=== PATIENT | female | born 1950 | race Caucasian/White ===

== ENCOUNTER → 2019-02-26 17:24 | Outpatient (CLI) | payer OTHER, SELFPAY ==
--- NOTE | 2019-02-26 17:30 | CT_ITS ---
STUDY: CTA OF THE BRAIN REASON FOR EXAM: Female, 68 years old. Single episode of the right leg numbness and tingling. History of the aneurysmal clips. RADIATION DOSAGE (If Supplied By Facility): CTDIvol = ( 27.89 ) mGy, DLP = ( 1373.91 ) mGycm TECHNIQUE: CT angiography was performed with a multi-detector CT scanner. Data acquisition was obtained from the skull base through the vertex following intravenous administration of 100cc IV Isovue 370. MIP images were reconstructed from the axial data set. Post-processing of the angiographic images was performed, with multiplanar reformation and 3D reconstruction. Individualized dose optimization techniques were used for this CT. COMPARISON: None. FINDINGS: Normal bilateral petrous carotid arteries. There is calcified plaque formation of the right cavernous carotid artery, without a cross-sectional luminal stenosis. There is calcified plaque formation of the left cavernous carotid artery, without a cross-sectional luminal stenosis. Normal right A1 segments of the anterior cerebral artery. Normal left A1 segments of the anterior cerebral artery. Normal intact anterior communicating artery (ACOM). Normal bilateral A2 segments of the anterior cerebral arteries. Normal right M1 and M2 segments of the middle cerebral arteries, with a normal M1 bifurcation. Normal left M1 and M2 segments of the middle cerebral arteries, with a normal M1 bifurcation. There is a persistent origin of the right posterior cerebral artery with absence of the posterior communicating artery (PCOM). Normal left posterior communicating artery (PCOM). Normal bilateral vertebral arteries. Normal basilar artery with a normal basilar bifurcation. The visualized bilateral superior cerebellar (SCA) arteries are normal. Normal bilateral P1, P2 and visualized P3 segments of the posterior cerebral arteries. There is no demonstrated aneurysm of the [place] of [place]an. Aneurysmal clip is seen in the region of the left posterior fossa in the region of the left posterior inferior cerebellar artery. The patient is status post left posterior occipital craniotomy and mesh placement. IMPRESSION: Normal [place] of [place] without a demonstrated aneurysm or hemodynamically significant stenosis. Electronically Signed: Wang No, at 9:08 EDT , Service support , STUDY: CTA NECK WITH CONTRAST REASON FOR EXAM: Female, 68 years old. Single episode of right leg numbness and tingling. RADIATION DOSAGE (If Supplied By Facility): CTDIvol = ( 27.89 ) mGy, DLP = ( 1373.91 ) mGycm TECHNIQUE: CT angiography with multi-detector data acquisition was performed from the aortic arch to the skull base following intravenous administration of 100cc IV Isovue 370. MIP images were reconstructed from the axial data set. Post-processing of the angiographic images was performed, with multiplanar reformation and 3D reconstruction. Individualized dose optimization techniques were used for this CT. COMPARISON: None. FINDINGS: AORTIC ARCH: There is atherosclerotic calcific plaque formation of the aortic arch and great vessels arising from the aortic arch, without a hemodynamically significant stenosis. There is a bovine origin of the great vessels with a common origin of the brachiocephalic and left common carotid artery. Normal origin of the left subclavian artery. RIGHT CAROTID ARTERIES: Normal right common carotid artery (CCA). Normal right common carotid bulb. Normal origin of the right internal carotid (ICA) artery without a hemodynamically significant stenosis. Normal visualized cervical portion of the right internal carotid artery. Normal origin of the right external carotid artery (ECA). LEFT CAROTID ARTERIES: Normal left common carotid artery (CCA). Normal left common carotid bulb. Normal origin of the left internal carotid (ICA) artery without a hemodynamically significant stenosis. Normal visualized cervical portion of the left internal carotid artery. Normal origin of the left external carotid artery (ECA). VERTEBRAL ARTERIES: Normal bilateral vertebral arteries. CT/CTA Head W/WO Contrast IMPRESSION: Normal bilateral cervical carotid and vertebral arteries. Electronically Signed: Wang No, at 9:10 EDT , Service support ,
--- NOTE | 2019-02-26 17:37 | CT_ITS ---
STUDY: CTA OF THE BRAIN REASON FOR EXAM: Female, 68 years old. Single episode of the right leg numbness and tingling. History of the aneurysmal clips. RADIATION DOSAGE (If Supplied By Facility): CTDIvol = ( 27.89 ) mGy, DLP = ( 1373.91 ) mGycm TECHNIQUE: CT angiography was performed with a multi-detector CT scanner. Data acquisition was obtained from the skull base through the vertex following intravenous administration of 100cc IV Isovue 370. MIP images were reconstructed from the axial data set. Post-processing of the angiographic images was performed, with multiplanar reformation and 3D reconstruction. Individualized dose optimization techniques were used for this CT. COMPARISON: None. FINDINGS: Normal bilateral petrous carotid arteries. There is calcified plaque formation of the right cavernous carotid artery, without a cross-sectional luminal stenosis. There is calcified plaque formation of the left cavernous carotid artery, without a cross-sectional luminal stenosis. Normal right A1 segments of the anterior cerebral artery. Normal left A1 segments of the anterior cerebral artery. Normal intact anterior communicating artery (ACOM). Normal bilateral A2 segments of the anterior cerebral arteries. Normal right M1 and M2 segments of the middle cerebral arteries, with a normal M1 bifurcation. Normal left M1 and M2 segments of the middle cerebral arteries, with a normal M1 bifurcation. There is a persistent origin of the right posterior cerebral artery with absence of the posterior communicating artery (PCOM). Normal left posterior communicating artery (PCOM). Normal bilateral vertebral arteries. Normal basilar artery with a normal basilar bifurcation. The visualized bilateral superior cerebellar (SCA) arteries are normal. Normal bilateral P1, P2 and visualized P3 segments of the posterior cerebral arteries. There is no demonstrated aneurysm of the [place] of Tran. Aneurysmal clip is seen in the region of the left posterior fossa in the region of the left posterior inferior cerebellar artery. The patient is status post left posterior occipital craniotomy and mesh placement. IMPRESSION: Normal [place] of [place]an without a demonstrated aneurysm or hemodynamically significant stenosis. Electronically Signed: Wang No, at 9:08 EDT , Service support , STUDY: CTA NECK WITH CONTRAST REASON FOR EXAM: Female, 68 years old. Single episode of right leg numbness and tingling. RADIATION DOSAGE (If Supplied By Facility): CTDIvol = ( 27.89 ) mGy, DLP = ( 1373.91 ) mGycm TECHNIQUE: CT angiography with multi-detector data acquisition was performed from the aortic arch to the skull base following intravenous administration of 100cc IV Isovue 370. MIP images were reconstructed from the axial data set. Post-processing of the angiographic images was performed, with multiplanar reformation and 3D reconstruction. Individualized dose optimization techniques were used for this CT. COMPARISON: None. FINDINGS: AORTIC ARCH: There is atherosclerotic calcific plaque formation of the aortic arch and great vessels arising from the aortic arch, without a hemodynamically significant stenosis. There is a bovine origin of the great vessels with a common origin of the brachiocephalic and left common carotid artery. Normal origin of the left subclavian artery. RIGHT CAROTID ARTERIES: Normal right common carotid artery (CCA). Normal right common carotid bulb. Normal origin of the right internal carotid (ICA) artery without a hemodynamically significant stenosis. Normal visualized cervical portion of the right internal carotid artery. Normal origin of the right external carotid artery (ECA). LEFT CAROTID ARTERIES: Normal left common carotid artery (CCA). Normal left common carotid bulb. Normal origin of the left internal carotid (ICA) artery without a hemodynamically significant stenosis. Normal visualized cervical portion of the left internal carotid artery. Normal origin of the left external carotid artery (ECA). VERTEBRAL ARTERIES: Normal bilateral vertebral arteries. CT/CTA Neck W/WO Contrast IMPRESSION: Normal bilateral cervical carotid and vertebral arteries. Electronically Signed: Wang No, at 9:10 EDT , Service support ,
[2019-02-26 17:56] LABS: CREATININE FINGERSTICK 1.2 mg/dL (0.55-1.02)
== END ==
PROVIDERS: Family Provider Family Medicine; PCP Family Medicine; Referring Provider Family Medicine; Visit Provider Family Medicine
DX: Z86.79 Personal history of other diseases of the circulatory system (principal)
CPT/HCPCS: 70496; 70498; Q9967

== ENCOUNTER 2022-06-27 12:16 | Observation (INO) | payer OTHER, SELFPAY ==
[2022-06-27] VITALS (14 sets, daily range): BP systolic 122–157; BP diastolic 64–82; PULSE 55–87; RESP 14–22; TEMP 36.1–36.9; O2SAT 97–98; BMI 22.4; BMI 23.3; BMI 22.1
--- NOTE | 2022-06-27 12:33 | EKG12_ITS ---
Test Reason : NEURO S/SX Blood Pressure : / mmHG Vent. Rate : 055 BPM Atrial Rate : 055 BPM P-R Int : 290 ms QRS Dur : 090 ms QT Int : 402 ms P-R-T Axes : 051 022 075 degrees QTc Int : 384 ms Sinus bradycardia with 1st degree A-V block Possible Anterior infarct , age undetermined Abnormal ECG Confirmed by DOMINGO [place], YADY ([id number]), proposal editor CARLOS GALLEGOS ([id number]) on 06/29/2022 8:36:32 AM Referred By: Confirmed By:YADY LANE MD
--- NOTE | 2022-06-27 12:33 | CT_ITS ---
STUDY: CT HEAD STROKE PROTOCOL W/O CONTRAST INJECTION REASON FOR EXAM: Female, 72 years old. Neuro deficit, acute, stroke suspected RADIATION DOSAGE (If Supplied By Facility): CTDIvol = ( 47.06 ) mGy, DLP = ( 872.68 ) mGycm TECHNIQUE: Transaxial CT imaging of the brain was performed without administration of intravenous contrast material. Individualized dose optimization techniques were used for this CT. COMPARISON: Comparison is made with prior study 02/26/2019. FINDINGS: Normal soft tissue structures. The patient is status post craniotomy of the midportion of the occipital bone with evidence of aneurysmal clipping of the left PICA. There is mild cerebral atrophy with widening of the extra-axial spaces and ventricular dilatation. There are areas of decreased attenuation within the white matter tracts of the supratentorial brain, consistent with microvascular disease changes. Normal basal ganglia and thalami. Normal brainstem. Normal cerebellum. There is no intracranial hemorrhage. There are no findings of an acute ischemic infarction. Normal visualized paranasal sinuses. ASPECT score: 10 CT/STROKE Brain/Head without Cont IMPRESSION: Evidence of prior occipital craniotomy and aneurysmal clipping of the left PICA. N.B. : The above Results were Read Back by Wang No MD to diego rodriguez and understanding confirmed on 06/27/2022 13:28:58 (ET). Electronically Signed: Wang No MD at 13:31 EDT ,
--- NOTE | 2022-06-27 12:34 | EDS_ITS ---
HPI History of Present Illness Chief Complaint: Neuro S/Sx Narrative Narrative: Patient presents with right arm right leg weakness and paresthesias that started 2 days ago it is almost exactly 48 hours ago. No vision changes no speech difficulties. She has history of hypertension but does not take her medications. [facility] Medical History (Updated 06/27/22 @ 14:[address] Ariel Rodriguez MD) Aneurysm HTN (hypertension) Home Medications diltiazem HCl 240 mg capsule,extended release 24 hr 240 mg PO DAILY 06/27/22 [History Last Taken 06/27/22] losartan 50 mg tablet 50 mg PO DAILY 06/27/22 [History Last Taken 06/27/22] Allergy/AdvReac Type Severity Reaction Status Date / Time No Known Allergies Allergy Verified 06/27/22 12:20 Social History Smoking Status: Never smoker ROS ROS ED ROS Narrative Past medical history: Reviewed Medications: Reviewed Social history: Noncontributory Review of systems: All systems negative except as indicated General: No fever Eyes: No visual changes ENT: No upper airway congestion, normal voice Neck: No neck pain Cardiovascular: No chest pain Respiratory: No shortness of breath or cough Gastrointestinal: No abdominal pain, nausea vomiting or diarrhea Genitourinary: No dysuria Musculoskeletal: Denies myalgias no difficulty with ambulation Skin: No rash Neurological: As in HPI Psych: No recent behavioral changes Hematologic: No easy bleeding or easy bruising EXAM Physical Exam Narrative Exam Narrative: Physical exam General: Well nourished, Well developed, No Acute Distress Head: Normocephalic, Atraumatic Eyes: Conjunctiva not pale ENT: Moist mucous membranes Neck: Supple, Nontender, No lymphadenopathy Cardiovascular: Regular rate, Regular rhythm Respiratory: No distress, CTA bilaterally Abdomen: Soft, Nontender, Nondistended Back: Nontender, Normal Inspection. Negative for: CVA tenderness Extremities: Nontender, No edema Skin: Normal color, No rash Neurological: See NIH stroke scale, basically right sided weakness and some sensory deficits. Psychological: Normal affect Const Vital Signs: 06/27/22 12:17 06/27/22 12:54 06/27/22 12:57 Temperature 97.8 F Temperature Source Temporal Pulse Rate 56 L 55 L Respiratory Rate 17 14 Blood Pressure 135/68 H 133/64 H Blood Pressure Mean 90 87 Pulse Ox 98 97 98 Oxygen Delivery Method Room Air Room Air Room Air 06/27/22 13:20 06/27/22 13:30 Temperature Temperature Source Pulse Rate 55 L 55 L Respiratory Rate 19 H 18 Blood Pressure 122/72 H 145/73 H Blood Pressure Mean 88 97 Pulse Ox 97 98 Oxygen Delivery Method Room Air Room Air NIHSS NIHSS Initial: 1a Level of Consciousness: 0 1b LOC Questions (Score 2 if aphasic/stupor): 0 1c LOC Commands (Only score 1st attempt): 0 2 Best Gaze (If aphasic, use reflexive mvmts.): 0 3 Visual: 0 4 Facial Palsy: 0 5 Motor Arm Right (UN = amputation/fusion): 0 5 Motor Arm Left: 0 6 Motor Leg Right: 2 6 Motor Leg Left: 0 7 Limb ataxia (Only + if out of proportion): 0 8 Sensory (Aphasia/stupor=0 or 1, coma=2): 1 9 Best Language: 0 11 Extinction and Inattention (only scored if +): 0 Total Score: 3 MDM MDM MDM Narrative Medical decision making narrative: Patient's work-up is unremarkable, however she has neurological symptoms that will need to be addressed inpatient. I will admit Lab Data Labs: Laboratory Results - last 24 hr 06/27/22 06/27/22 06/27/22 12:45 12:45 12:45 WBC 7.4 RBC 4.64 Hgb 14.1 Hct 42.8 MCV 92.2 MCH 30.4 MCHC 32.9 RDW Std Deviation 50.4 H RDW Coeff of Ravinder 14.9 H Plt Count 290 MPV 10.3 Immature Gran % (Auto) 0.300 Neut % (Auto) 45.2 L Lymph % (Auto) 41.6 H Gonzales % (Auto) 10.5 H Eos % (Auto) 1.6 Baso % (Auto) 0.8 Absolute Neuts (auto) 3.4 Absolute Lymphs (auto) 3.08 Nucleated RBC % 0 PT 12.7 INR 1.0 APTT 26.6 Sodium 142 Potassium 3.7 Chloride 106 Carbon Dioxide 28.0 Anion Gap 8 BUN 11 Creatinine 0.78 Estim Creat Clear Calc 36.53 Est GFR (MDRD) Af Amer 93 Est GFR (MDRD) Non-Af 77 BUN/Creatinine Ratio 14.1 Glucose 100 Calcium 9.5 Troponin I High Sens 6 POC Glucose 06/27/22 12:52 WBC RBC Hgb Hct MCV MCH MCHC RDW Std Deviation RDW Coeff of Ravinder Plt Count MPV Immature Gran % (Auto) Neut % (Auto) Lymph % (Auto) Gonzales % (Auto) Eos % (Auto) Baso % (Auto) Absolute Neuts (auto) Absolute Lymphs (auto) Nucleated RBC % PT INR APTT Sodium Potassium Chloride Carbon Dioxide Anion Gap BUN Creatinine Estim Creat Clear Calc Est GFR (MDRD) Af Amer Est GFR (MDRD) Non-Af BUN/Creatinine Ratio Glucose Calcium Troponin I High Sens POC Glucose 118 H Radiography Diagnostic Testing: Clinical Impression(s) from Imaging Studies Brain CT 06/27/22 12:33 IMPRESSION: Evidence of prior occipital craniotomy and aneurysmal clipping of the left PICA. N.B. : The above Results were Read Back by Wang oN MD to ariel rodriguez and understanding confirmed on 06/27/2022 13:28:58 (ET). Electronically Signed: Wang No MD at 13:31 EDT , ADDENDUM: 06/27/22 1338 IMPRESSION: Evidence of prior occipital craniotomy and aneurysmal clipping of the left PICA. N.B. : The above Results were Read Back by Wang No MD to ariel rodriguez and understanding confirmed on 06/27/2022 13:28:58 (ET). Electronically Signed: Wang No MD at 13:31 EDT , Chest X-Ray 06/27/22 13:10 IMPRESSION: No acute abnormality is seen. Electronically Signed: Wang No MD at 13:30 EDT , Head/Neck CTA 06/27/22 13:54 IMPRESSION: Status post aneurysmal clipping of the left PICA. No acute abnormality is seen. Electronically Signed: Wang No MD at 14:39 EDT , Chest x-ray does not show any acute abnormalities Discharge Plan Triage Chief Complaint: Neuro S/Sx ED Provider: Ariel Rodriguez Dx/Rx/DC Orders Clinical Impression: Acute stroke due to ischemia, Weakness Prescriptions: No Action losartan 50 mg tablet 50 mg PO DAILY Label Comments: TAKE 1 TABLET BY MOUTH EVERY DAY diltiazem HCl 240 mg capsule,extended release 24hr 240 mg PO DAILY Label Comments: TAKE 1 CAPSULE BY MOUTH EVERY DAY Primary Care Provider: Devyn Amador Referrals: Devyn Amador DO [Primary Care Provider] - Disposition Disposition: Acute Care Hospital [facility]
[2022-06-27 12:57] LABS: Absolute Lymphocyte Count 3.08 X10^3/uL (0.83-4.51); Absolute Neutrophil Count 3.4 X10^3/uL (2.0-7.7); Basophil# 0.06 X10^3/uL; Basophil% 0.8 % (0-1); Eosinophil# 0.12 X10^3/uL; Eosinophils% 1.6 % (0-5); Hematocrit 42.8 % (37-47); Hemoglobin 14.1 g/dL (12.0-15.0); Lymphocyte # 3.08 X10^3/ul (0.83-4.51); Lymphocyte % 41.6 % (19-41); Mean Corp Hgb Conc 32.9 g/dL (32-36); Mean Corpuscular Hgb 30.4 pg (27.0-32.0); Mean Corpuscular Volume 92.2 fL (81-99); Mean Platelet Vol. 10.3 fl (6.2-12.0); Monocyte# 0.78 X10^3/uL; Monocyte% 10.5 % (0-10); NRBC Flagged by Analyzer 0 % (0-5); Neutrophil # 3.35 X10^3/uL (2.7-7.7); Neutrophil % 45.2 % (47-70); Platelet Count 290 K/mm3 (150-450); RBC Distribution Width CV 14.9 % (11.6-14.6); RBC Distribution Width SD 50.4 fl (35.1-43.9); Red Blood Count 4.64 M/mm3 (4.2-5.4); White Blood Count 7.4 K/mm3 (4.4-11.0)
[2022-06-27 13:05] LABS: Prothrombin Time (Protime)PT. 12.7 SECONDS (11.7-14.9)
[2022-06-27 13:06] LABS: Partial Thromboplast Time 26.6 Seconds (24.1-36.2)
--- NOTE | 2022-06-27 13:10 | RAD_ITS ---
STUDY: X-RAY CHEST REASON FOR EXAM: Female, 72 years old. Neuro deficit, acute, stroke suspected TECHNIQUE: Single AP portable view of the chest. COMPARISON: None. FINDINGS: EKG electrodes are seen. The lungs are clear and expanded. There is no demonstrated pleural abnormality. Normal size heart. Normal mediastinum and kulwant. Normal visualized pulmonary arteries. There is atherosclerotic tortuosity of the aortic arch and descending thoracic aorta. There are diffuse degenerative changes of the visualized thoracic spine. Normal visualized ribs, clavicles, and shoulders. There is no demonstrated abnormality of the visualized soft tissue structures of the upper abdomen. RAD/Chest 1 View IMPRESSION: No acute abnormality is seen. Electronically Signed: Wang No MD at 13:30 EDT ,
[2022-06-27 13:17] LABS: Anion Gap 8 (5-15); BUN 11 mg/dL (7-18); BUN/Creat Ratio 14.1 RATIO (10-20); Calcium,Total 9.5 mg/dL (8.5-10.1); Chloride 106 mmol/L (98-107); Creatinine, Serum 0.78 mg/dL (0.55-1.02); EST Glomerular Filtration Rate 77 mL/min (>60); Est Glom Filt Rate - Afr Amer 93 mL/min (>60); Estimated Creatinine Clearance 36.53 ml/min; Glucose 100 mg/dL (74-106); Potassium 3.7 mmol/L (3.5-5.1); Sodium Level 142 mmol/L (136-145); Troponin-I HS 6 pg/mL (3.0-54.0)
[2022-06-27 13:21] LABS: Bedside Glucose 118 mg/dL (74-106)
--- NOTE | 2022-06-27 13:54 | CT_ITS ---
STUDY: CTA HEAD AND NECK WITH CONTRAST REASON FOR EXAM: Female, 72 years old. Stroke RADIATION DOSAGE (If Supplied By Facility): CTDIvol = ( 19.97 ) mGy, DLP = ( 524.85 ) mGycm TECHNIQUE: CT angiography was performed with a multi-detector CT scanner. Data acquisition was obtained from the skull base through the vertex following intravenous administration of IV 75mL Isovue-370. MIP images were reconstructed from the axial data set. Post-processing of the angiographic images was performed, with multiplanar reformation and 3D reconstruction. Individualized dose optimization techniques were used for this CT. COMPARISON: Comparison is made with prior examination dated 02/26/2019. FINDINGS: Normal bilateral petrous carotid arteries. Normal right cavernous carotid artery with a normal supraclinoid bifurcation. Normal left cavernous carotid artery with a normal supraclinoid bifurcation. Normal right A1 segments of the anterior cerebral artery. Normal left A1 segments of the anterior cerebral artery. Normal intact anterior communicating artery (ACOM). Normal bilateral A2 segments of the anterior cerebral arteries. Normal right M1 and M2 segments of the middle cerebral arteries, with a normal M1 bifurcation. Normal left M1 and M2 segments of the middle cerebral arteries, with a normal M1 bifurcation. Normal right posterior communicating artery (PCOM). Normal left posterior communicating artery (PCOM). Normal bilateral vertebral arteries. Normal basilar artery with a normal basilar bifurcation. The visualized bilateral superior cerebellar (SCA) arteries are normal. Normal bilateral P1, P2 and visualized P3 segments of the posterior cerebral arteries. There is no demonstrated aneurysm of the [place] of Tran. There is no demonstrated abnormality of the visualized brain. AORTIC ARCH: Normal visualized aortic arch. Normal origins of the brachiocephalic, left common carotid, and left subclavian arteries. RIGHT CAROTID ARTERIES: Normal right common carotid artery (CCA). Normal right common carotid bulb. Normal origin of the right internal carotid (ICA) artery without a hemodynamically significant stenosis. Normal visualized cervical portion of the right internal carotid artery. Normal origin of the right external carotid artery (ECA). LEFT CAROTID ARTERIES: Normal left common carotid artery (CCA). Normal left common carotid bulb. Normal origin of the left internal carotid (ICA) artery without a hemodynamically significant stenosis. Normal visualized cervical portion of the left internal carotid artery. Normal origin of the left external carotid artery (ECA). VERTEBRAL ARTERIES: Normal bilateral vertebral arteries. The patient is status post aneurysmal clipping of the left PICA. CT/CTA Head AND Neck W/ Contrast IMPRESSION: Status post aneurysmal clipping of the left PICA. No acute abnormality is seen. Electronically Signed: Wang No MD at 14:39 EDT ,
--- NOTE | 2022-06-27 19:40 | ECHOD_ITS ---
Reason For Study: TIA/CVA Procedure This was a 2D Doppler, Color Flow transthoracic echocardiogram. The study was technically difficult. Exam performed portable in patient room. Left Ventricle Normal LV size. Left ventricular systolic function is normal. The estimated ejection fraction is 65 %. Diastolic function is indeterminate. No regional wall motion abnormalities noted. Right Ventricle Normal RV size. Normal systolic function. Atria The left atrium is mildly enlarged. Normal right atrium. No doppler evidence for ASD. Bubble contrast study negative for right to left interatrial shunt. Mitral Valve There is no mitral annular calcification. Mild diffuse mitral valve thickening. Trivial mitral valve insufficiency. Tricuspid Valve Normal tricuspid valve. Mild tricuspid valve insufficiency. Unable to estimate RV systolic pressure/pulmonary artery pressure due to technically difficult study. Aortic Valve The aortic valve is not well visualized. Pulmonic Valve The pulmonic valve is not well visualized. Great Vessels Normal sized aortic root. Pericardium/Pleural No pericardial effusion. Medication Performed a rapid injection of agitated mix of 9 cc saline and 1cc air to assess for atrial septal defect. MMode/2D Measurements & Calculations LVIDd: 4.4 cm IVSd: 1.1 cm Ao root diam: 3.7 cm LVIDs: 2.2 cm LVPWd: 1.1 cm RVDd: 2.5 cm FS: 49.0 % LAV(MOD-bp): 66.7 ml LA A4 area: 20.6 cm2 LA dimension(2D): 3.4 cm LAV(MOD-bp) Indexed: 45.5 ml/m2 LAV(MOD-sp2): 60.3 ml LAV(MOD-sp4): 71.2 ml Time Measurements MV dec time: 0.31 sec Doppler Measurements & Calculations MV E max ayo: 59.7 cm/sec Lat Peak E' Ayo: 8.0 cm/sec Med Peak E' Ayo: 6.5 cm/sec MV A max ayo: 84.1 cm/sec E/E' lat: 7.4 E/E' med: 9.2 MV E/A: 0.71 MV dec slope: 197.3 cm/sec2 Ao V2 max: 145.3 cm/sec LV V1 max: 92.1 cm/sec Ao max P.5 mmHg LV V1 max P.4 mmHg ECHO/Echo Complete Interpretation Summary The study was technically difficult. Left ventricular systolic function is normal. The estimated ejection fraction is 65 %. The left atrium is mildly enlarged. Mild diffuse mitral valve thickening. Trivial mitral valve insufficiency. Mild tricuspid valve insufficiency. Unable to estimate RV systolic pressure/pulmonary artery pressure due to techni tyler difficult study. Diastolic function is indeterminate. Bubble contrast study negative for right to left interatrial shunt. Ordering Physician: Hernan Carlos Referring Physician: Devyn Amador Performed By: Omayra Vázquez, RAQUEL, RVT
--- NOTE | 2022-06-27 21:46 | PCM.HP.STD ---
HPI - General General Date of Admission: 06/27/22 Date of Service: 06/27/22 Chief Complaint: Right leg weakness HPI Narrative JAROD REVELES, is a 72 F who presents to the emergency room at [facility] with complaints of weakness in her right leg which started 2 days ago at 12 noon. Patient has a history of hypertension but had not been taking her blood pressure medications on a daily basis, she states she has been taking them since this weekend. Patient denied any speech difficulties or any visual disturbances. Work-up in the emergency room included a CBC which was unremarkable, patient's chemistry profile was unremarkable, CTA of the head and neck did not show any evidence of occlusive vascular disease, patient's brain CT showed no evidence of stroke. Patient did have an aneurysm clipped in the past, she is not able to undergo an MRI, this aneurysm happened approximately 20 to 25 years ago. Patient's NIH score was 3. Patient will be placed into observation status on PCU, she will undergo repeat CT scan of the brain tomorrow, I have elected to place her on aspirin 81 mg daily and atorvastatin 40 mg nightly. Patient will undergo an echocardiogram tomorrow, she has never had one done at this facility. [facility] Medical History Aneurysm HTN (hypertension) Home Medications diltiazem HCl 240 mg capsule,extended release 24 hr 240 mg PO DAILY 06/27/22 [History Last Taken 06/27/22] losartan 50 mg tablet 50 mg PO DAILY 06/27/22 [History Last Taken 06/27/22] Allergy/AdvReac Type Severity Reaction Status Date / Time No Known Allergies Allergy Verified 06/27/22 12:20 Family History no significant family his Social History (Updated 06/27/22 @ 16:55 by Carolina Zapata) household members: none housing: house Smoking Status: Never smoker ROS Constitutional Constitutional: Denies anorexia, change in weight, chills, fatigue, fever(s), night sweats or weakness Eyes Eyes: Denies blurry vision, change in vision, discharge from eye(s) or eye pain ENT HEENT: Denies abnormal hearing or dysphagia Cardiovascular Cardiovascular: Denies chest pain, claudication, edema or palpitations Respiratory/Chest Respiratory/Chest: Denies cough, dyspnea, hemoptysis, productive cough, shortness of breath at rest or shortness of breath with exertion Gastrointestinal Gastrointestinal: Denies abdominal pain, constipation, diarrhea, dyspepsia, hematemesis, hematochezia, melena, nausea or vomiting Genitourinary Genitourinary: Denies dysuria, hematuria, urinary frequency, urinary hesitancy, urinary incontinence or urinary urgency Musculoskeletal Musculoskeletal: Denies back pain, joint pain, joint stiffness, joint swelling, myalgias or neck pain Neurologic Neurologic: Reports focal weakness and other Details: Patient complained of right leg weakness and difficulty walking at times over the past 3 days. ; Denies abnormal gait, abnormal speech, confusion, dizziness, headache(s), loss of vision, numbness, other visual disturbances, paresthesias, syncope or tingling Psychiatric Psychiatric: Denies anxiety, cognitive impairment, depression, irritability, mood swings or suicidal ideation Endocrine Endocrinology: Denies change in body appearance, cold intolerance, excessive sweating, heat intolerance, polydipsia or polyuria Hematologic/Lymphatic Hematologic/Lymphatic: Denies none, anemia, easy bleeding, easy bruising or lymphadenopathy Allergic/Immunologic Allergic/Immunologic: Denies rhinitis, urticaria, eczemia or asthma Vital Signs Vital Signs Vital Signs: 06/27/22 12:17 06/27/22 12:54 06/27/22 12:57 Temperature 97.8 F Temperature Source Temporal Pulse Rate 56 L 55 L Respiratory Rate 17 14 Blood Pressure 135/68 H 133/64 H Blood Pressure Mean 90 87 Blood Pressure Source Blood Pressure Position Blood Pressure Location Pulse Ox 98 97 98 Oxygen Delivery Method Room Air Room Air Room Air 06/27/22 13:20 06/27/22 13:30 06/27/22 14:00 Temperature Temperature Source Pulse Rate 55 L 55 L 61 Respiratory Rate 19 H 18 19 H Blood Pressure 122/72 H 145/73 H 145/73 H Blood Pressure Mean 88 97 97 Blood Pressure Source Blood Pressure Position Blood Pressure Location Pulse Ox 97 98 98 Oxygen Delivery Method Room Air Room Air Room Air 06/27/22 14:30 06/27/22 14:49 06/27/22 15:00 Temperature 98.4 F Temperature Source Temporal Pulse Rate 59 L 59 L 57 L Respiratory Rate 22 H 20 H 20 H Blood Pressure 149/76 H 145/76 H 145/76 H Blood Pressure Mean 100 99 99 Blood Pressure Source Blood Pressure Position Blood Pressure Location Pulse Ox 97 98 97 Oxygen Delivery Method Room Air Room Air Room Air 06/27/22 15:30 06/27/22 16:14 06/27/22 16:45 Temperature 97 F L Temperature Source Temporal Pulse Rate 62 63 55 L Respiratory Rate 15 14 Blood Pressure 157/82 H 146/69 H Blood Pressure Mean 107 94 Blood Pressure Source Monitor Blood Pressure Position Semi-Fowlers Blood Pressure Location Right Arm Pulse Ox 98 98 Oxygen Delivery Method Room Air Room Air 06/27/22 16:56 06/27/22 21:33 Temperature 97.8 F Temperature Source Temporal Pulse Rate 87 Respiratory Rate 16 Blood Pressure 132/69 H Blood Pressure Mean 90 Blood Pressure Source Monitor Blood Pressure Position Semi-Fowlers Blood Pressure Location Right Arm Pulse Ox 97 Oxygen Delivery Method Room Air Room Air Weight Weight: 51.5 kg Body Mass Index (BMI) 22.1 Physical Exam Const alert, oriented x3, no apparent distress, average body habitus and healthy appearing General Appearance: cooperative, well kempt and well developed Orientation / Consciousness: awake, oriented to person, oriented to place and oriented to time HEENT normocephalic, head/scalp atraumatic, hearing grossly normal bilaterally and moist oral mucous membranes Eyes PERRL, EOMs intact bilaterally and conjunctivae normal Neck supple, no JVD, thyroid normal and no carotid bruits General: trachea midline Resp normal respiratory effort, no retractions, no use of accessory muscles and clear to auscultation bilaterally Auscultation: Negative for rales, rhonchi or wheezes Cardio regular rate, regular rhythm, S1 normal heart sound, S2 normal heart sound, no murmurs, no rub and no gallops GI normal to inspection, nondistended, normoactive bowel sounds, soft to palpation, non-tender and non-distended Extremity no clubbing, cyanosis or edema Skin no rashes or lesions noted General Skin Exam: no breakdown Neuro oriented x3, CN's II-XII intact bilaterally, moves all extremities and no sensory deficits noted Neuro Narrative: Patient has some mild right leg weakness on extension of the right leg. Sensorium / Orientation: awake and alert Speech: speech normal Psych affect normal Results Lab / Micro Data Result Diagrams: 06/27/22 12:45 06/27/22 12:45 Labs: Laboratory Results - last 24 hr 06/27/22 12:45: WBC 7.4, RBC 4.64, Hgb 14.1, Hct 42.8, MCV 92.2, MCH 30.4, MCHC 32.9, RDW Std Deviation 50.4 H, RDW Coeff of Ravinder 14.9 H, Plt Count 290, MPV 10.3, Immature Gran % (Auto) 0.300, Neut % (Auto) 45.2 L, Lymph % (Auto) 41.6 H, [place] % (Auto) 10.5 H, Eos % (Auto) 1.6, Baso % (Auto) 0.8, Absolute Neuts (auto) 3.4, Absolute Lymphs (auto) 3.08, Nucleated RBC % 0 06/27/22 12:45: PT 12.7, INR 1.0, APTT 26.6 06/27/22 12:45: Sodium 142, Potassium 3.7, Chloride 106, Carbon Dioxide 28.0, Anion Gap 8, BUN 11, Creatinine 0.78, Estim Creat Clear Calc 36.53, Est GFR (MDRD) Af Amer 93, Est GFR (MDRD) Non-Af 77, BUN/Creatinine Ratio 14.1, Glucose 100, Calcium 9.5, Troponin I High Sens 6 06/27/22 12:52: POC Glucose 118 H Radiology Impression Brain CT 06/27/22 12:33 IMPRESSION: Evidence of prior occipital craniotomy and aneurysmal clipping of the left PICA. N.B. : The above Results were Read Back by Wang No MD to diego rodriguez and understanding confirmed on 06/27/2022 13:28:58 (ET). Electronically Signed: Wang No MD at 13:31 EDT , ADDENDUM: 06/27/22 1338 IMPRESSION: Evidence of prior occipital craniotomy and aneurysmal clipping of the left PICA. N.B. : The above Results were Read Back by Wang No MD to diego rodriguez and understanding confirmed on 06/27/2022 13:28:58 (ET). Electronically Signed: Wang No MD at 13:31 EDT , Chest X-Ray 06/27/22 13:10 IMPRESSION: No acute abnormality is seen. Electronically Signed: Wang No MD at 13:30 EDT , Head/Neck CTA 06/27/22 13:54 IMPRESSION: Status post aneurysmal clipping of the left PICA. No acute abnormality is seen. Electronically Signed: Wang No MD at 14:39 EDT , Assessment & Plan Assessment/Plan (1) Weakness: PLAN: Plan 1. Right lower extremity weakness-etiology unclear, patient will be placed in observation status on PCU, she cannot undergo an MRI of the brain due to her past history of aneurysmal clipping in the brain, repeat CT of the brain will be obtained tomorrow. Patient will undergo an echocardiogram, she was placed on aspirin and a statin. #2 essential hypertension-patient will remain on her home medications for blood pressure #3 noncompliance with blood pressure medications, complicates recovery, management, care, and prognosis. Charges/Coding Visit Charges OBSV E&M: 90582 Initial observation care L3
[2022-06-28 00:21] VITALS: PULSE 63
[2022-06-28 02:00] VITALS: BP 136/72; PULSE 68; RESP 16; TEMP 36.6; O2SAT 98
[2022-06-28 02:25] VITALS: BMI 22.1
[2022-06-28 04:12] VITALS: PULSE 59
--- NOTE | 2022-06-28 05:55 | CT_ITS ---
STUDY: CT BRAIN WITHOUT CONTRAST REASON FOR EXAM: Female, 72 years old. right sided weakness RADIATION DOSAGE (If Supplied By Facility): CTDIvol = ( 44.99 ) mGy, DLP = ( 796.11 ) mGycm TECHNIQUE: Transaxial CT imaging of the brain was performed without administration of intravenous contrast material. Individualized dose optimization techniques were used for this CT. COMPARISON: 02/26/2019 FINDINGS: Normal soft tissue structures. Stable postsurgical changes at the skull base/foramen magnum. There is mild cerebral atrophy with widening of the extra-axial spaces and ventricular dilatation. There are areas of decreased attenuation within the white matter tracts of the supratentorial brain, consistent with microvascular disease changes. Normal basal ganglia and thalami. Normal brainstem. Normal cerebellum. There is no intracranial hemorrhage. There are no findings of an acute ischemic infarction. Normal visualized paranasal sinuses. CT/Brain/Head without Contrast IMPRESSION: Chronic involutional changes of the brain. Electronically Signed: César Glaser DO at 6:05 EDT ,
[2022-06-28 06:59] VITALS: PULSE 66
[2022-06-28 07:52] VITALS: BP 126/75; PULSE 62; RESP 16; TEMP 36.6; O2SAT 95
[2022-06-28 11:50] VITALS: BP 140/92; PULSE 78; RESP 16; TEMP 36.8; O2SAT 97
[2022-06-28] MEDS: dilTIAZem CD 240 MG Capsule PO (12:23)
--- NOTE | 2022-06-28 12:46 | DCINST_ITS ---
Discharge Instructions Diet Discharge Diet: Low fat / Low cholesterol Activity Discharge Activity: Return to Normal Activity Dressing / Incision Call your doctor if you observe: Fever of 101 or Higher, Shortness of breath, Dizziness, Fainting spells, Swelling in the ankles, Chest pain and Increased palpitations (irregular heartbeat) Follow Up Care Test Results: Test results from this visit will be discussed in further detail at your follow- up appointment, if applicable. Discharge Plan Admission Admit Date/Time: 06/27/22 16:50 Attending Provider: Siddharth Montelongo Primary Care Provider: Devyn Amador Consulting Providers: Hernan Carlos Discharge Orders/Prescriptions Prescriptions: Continued losartan 50 mg tablet 50 mg PO DAILY Label Comments: TAKE 1 TABLET BY MOUTH EVERY DAY diltiazem HCl 240 mg capsule,extended release 24hr 240 mg PO DAILY Label Comments: TAKE 1 CAPSULE BY MOUTH EVERY DAY Referrals / Follow Up: Devyn Amador DO [Primary Care Provider] - Within 1 Week Disposition Disposition (needs filled in before D/C Order can be placed): Home, Self Care
--- NOTE | 2022-06-28 12:48 | DS.PCM_ITS ---
Providers Date of Admission: 06/27/22 Primary Care Physician: Dr. Devyn Amador, DO Reason For Visit: WEAKNESS, PARESTHESIA Diagnosis Discharge Diagnosis (1) Weakness: Status: Acute Code(s): R53.1 - Weakness Medications at Discharge Home Medications diltiazem HCl 240 mg capsule,extended release 24 hr 240 mg PO DAILY 06/27/22 losartan 50 mg tablet 50 mg PO DAILY 06/27/22 Hospital Course Operations None Procedures 2-D Echocardiogram Summary of Care Provided Minutes Spent on Discharge: 38 Hospital Course: Per HPI: JAROD REVELES, is a 72 F who presents to the emergency room at [facility] with complaints of weakness in her right leg which started 2 days ago at 12 noon.? Patient has a history of hypertension but had not been taking her blood pressure medications on a daily basis, she states she has been taking them since this weekend.? Patient denied any speech difficulties or any visual disturbances.? Work-up in the emergency room included a CBC which was unremarkable, patient's chemistry profile was unremarkable, CTA of the head and neck did not show any evidence of occlusive vascular disease, patient's brain CT showed no evidence of stroke.? Patient did have an aneurysm clipped in the past, she is not able to undergo an MRI, this aneurysm happened approximately 20 to 25 years ago. Patient's NIH score was 3. Patient will be placed into observation status on PCU, she will undergo repeat C T scan of the brain tomorrow, I have elected to place her on aspirin 81 mg daily and atorvastatin 40 mg nightly.? Patient will undergo an echocardiogram tomorrow, she has never had one done at this facility. Hospital Course: 1. Right lower extremity weakness/hypertension?72-year-old female presented to the hospital for right lower extremity weakness that led to a fall 2 days prior to admission. On admission here she admitted to not taking her blood pressure medications, and that time she had been having headaches and some dizziness. She states today that she is completely back to normal, no right-sided weakness and she denies any headaches or dizziness at this time. She understands the importance of taking her blood pressure medications at home. Given her previous history with noncompliance however I am hesitant especially in the lack of evidence for stroke, to adding more medications to her. An echo was done today however it has not been read yet and her only ride leaves at 130. It was discussed with her that the likelihood there would be anything that need to be emergently addressed is low and that anything found on the echo could be addressed as an outpatient. I discussed with her the plan for discharge today and she expressed understanding of the risk and benefits of going home and would like to go home today. Physical Exam Narrative General: Alert, Oriented x3, Cooperative, No apparent distress HEENT: Atraumatic, PERRLA, EOMI, Normocephalic Oral: Moist Mucosa Neck: Supple, No JVD Lungs: Clear to auscultation, Normal air movement, No rhonchi, No wheeze, No rales Cardiovascular: Regular rate, Regular Rhythm, Normal S1, Normal S2, No murmurs Abdomen: Soft, Non Tender, Non-Distended, No Hepato-splenomegaly Extremities: No edema, Capillary Refill Less than 3 Seconds Skin: No rashes, No breakdown Musculoskeletal: No Tenderness to Palpation of Joints or Extremities Neurological: Cranial nerves II-XII grossly intact, Motor Exam 5/5 strength throughout, Sensory exam intact to light touch and pain Psych/Mental Status: Normal Affect, Appropriate Weight / BMI Weight Weight: 113 lb 8.609 oz Body Mass Index (BMI) 22.1 ABG / Lab / Microbiology Data Result Diagrams: 06/27/22 12:45 06/27/22 12:45 Laboratory: Laboratory Results - last 24 hr 06/27/22 12:45: WBC 7.4, RBC 4.64, Hgb 14.1, Hct 42.8, MCV 92.2, MCH 30.4, MCHC 32.9, RDW Std Deviation 50.4 H, RDW Coeff of Ravinder 14.9 H, Plt Count 290, MPV 10.3, Immature Gran % (Auto) 0.300, Neut % (Auto) 45.2 L, Lymph % (Auto) 41.6 H, [place]ole % (Auto) 10.5 H, Eos % (Auto) 1.6, Baso % (Auto) 0.8, Absolute Neuts (auto) 3.4, Absolute Lymphs (auto) 3.08, Nucleated RBC % 0 06/27/22 12:45: PT 12.7, INR 1.0, APTT 26.6 06/27/22 12:45: Sodium 142, Potassium 3.7, Chloride 106, Carbon Dioxide 28.0, Anion Gap 8, BUN 11, Creatinine 0.78, Estim Creat Clear Calc 36.53, Est GFR ( MDRD) Af Amer 93, Est GFR (MDRD) Non-Af 77, BUN/Creatinine Ratio 14.1, Glucose 100, Calcium 9.5, Troponin I High Sens 6 06/27/22 12:52: POC Glucose 118 H Radiography Diagnostic Testing: Radiology Impression Brain CT 06/27/22 12:33 IMPRESSION: Evidence of prior occipital craniotomy and aneurysmal clipping of the left PICA. N.B. : The above Results were Read Back by Wang No MD to diego rodriguez and understanding confirmed on 06/27/2022 13:28:58 (ET). Electronically Signed: Wang No MD at 13:31 EDT , ADDENDUM: 06/27/22 1338 IMPRESSION: Evidence of prior occipital craniotomy and aneurysmal clipping of the left PICA. N.B. : The above Results were Read Back by Wang No MD to diego rodriguez and understanding confirmed on 06/27/2022 13:28:58 (ET). Electronically Signed: Wang No MD at 13:31 EDT , Chest X-Ray 06/27/22 13:10 IMPRESSION: No acute abnormality is seen. Electronically Signed: Wang No MD at 13:30 EDT , Head/Neck CTA 06/27/22 13:54 IMPRESSION: Status post aneurysmal clipping of the left PICA. No acute abnormality is seen. Electronically Signed: Wagn No MD at 14:39 EDT , Brain CT 06/28/22 05:55 IMPRESSION: Chronic involutional changes of the brain. Electronically Signed: César Glaser DO at 6:05 EDT , D/C Instructions Discharge Diet: Low fat / Low cholesterol Call your doctor if you observe: Fever of 101 or Higher, Shortness of breath, Dizziness, Fainting spells, Swelling in the ankles, Chest pain and Increased palpitations (irregular heartbeat) Meaningful Use Info Meaningful Use Diagnoses (Choose all that apply): None applicable Discharge Plan Admission Admit Date/Time: 06/27/22 16:50 Attending Provider: Siddharth Montelongo Primary Care Provider: Devyn Amador Consulting Providers: Hernan Carlos Discharge Orders/Prescriptions Prescriptions: Continued losartan 50 mg tablet 50 mg PO DAILY Label Comments: TAKE 1 TABLET BY MOUTH EVERY DAY diltiazem HCl 240 mg capsule,extended release 24hr 240 mg PO DAILY Label Comments: TAKE 1 CAPSULE BY MOUTH EVERY DAY Referrals / Follow Up: Devyn Amador DO [Primary Care Provider] - Within 1 Week Disposition Disposition (needs filled in before D/C Order can be placed): Home, Self Care Charges/Coding Visit Charges OBSV E&M: 03943 Observation care discharge
--- NOTE | 2022-06-28 13:00 | CASEMGMT ---
This RN CM to room to discuss discharge plan and pt is standing at bedside eating her lunch and states no concerns with going home at time of discharge. Pt voices no further questions/concerns/needs. SStaten RN CM
[2022-06-28] MEDS: Losartan Potassium 50 MG Tablet PO (13:17)
[2022-06-28 14:01] VITALS: BMI 22.1
--- NOTE | 2022-06-28 14:31 | CASEMGMT ---
SW did not complete a PHQ9 with patient as per physician patient did not have a Stroke or TIA. Diya MARTINEZ
== END 2022-06-28 12:47 | disposition home or self-care (01) ==
LOC: ED 14:49 → PCU 16:03
PROVIDERS: Admitting Provider Internal Medicine; Emergency Provider Emergency Medicine; PCP Family Medicine; Visit Provider Family Medicine
DX: R53.1 Weakness (principal); I10 Essential (primary) hypertension; R20.2 Paresthesia of skin; Z79.899 Other long term (current) drug therapy; R29.703 NIHSS score 3; Z91.14 Patient's other noncompliance with medication regimen
CPT/HCPCS: 70450; 70496; 70498; 71045; 80048; 82962; 84484; 85025; 85610; 85730; 93005; 93306; 99218; 99284; Q9967; A4216; G0378

== ENCOUNTER 2023-06-07 12:12 | Emergency (ER) | payer OTHER, SELFPAY ==
[2023-06-07 12:13] VITALS: BP 163/89; PULSE 68; RESP 16; TEMP 36.6; O2SAT 95; BMI 25.0
--- NOTE | 2023-06-07 12:40 | RAD_ITS ---
INDICATION: chest pain -- -- CP since yesterday EXAMINATION/TECHNIQUE: X-RAY - XR Chest 1 View COMPARISON: Prior study dated: June 27, 2022 FINDINGS: LINES/DEVICES: None. LUNGS: No consolidation, edema or effusion. No pneumothorax. MEDIASTINUM AND CARDIOVASCULAR STRUCTURES: Cardiac silhouette not enlarged. Central airways and mediastinal contour are unremarkable. BONES AND SOFT TISSUES: Unremarkable. RAD/Chest 1 View (Portable) IMPRESSION: No radiographic evidence of acute cardiopulmonary disease. Electronically Signed: Elizabeth Ordaz MD at 13:17 EDT ,
--- NOTE | 2023-06-07 12:46 | ED.VIS.CHEST ---
HPI History of Present Illness Chief Complaint: Chest Pain Informant: patient and family Narrative Narrative: Patient presents with an area of pain in her left upper chest. She states this pain started sometime yesterday. Its never been that bad. It is better today than it was yesterday. She states last night it might of been a little bit more. But she was able to get sleep. She does not feel ill. She is not at any time had nausea vomiting diaphoresis lightheadedness or shortness of breath. No coughing. She states the pain is in left upper chest and me radiates slightly toward her shoulder but no further. Nothing seems to make it better or worse. Activity does not change it. She has not had it before. She has a history of high blood pressure but not high cholesterol diabetes smoking or family history of heart disease at a young age. She thinks her brother had a heart attack but he was likely in his mid 60s. No travel surgery or immobilization personal family history of DVT or PE. [facility] Medical History Aneurysm HTN (hypertension) Home Medications diltiazem HCl 240 mg capsule,extended release 24 hr 240 mg PO DAILY 06/27/22 [History Last Taken 06/27/22] losartan 50 mg tablet 50 mg PO DAILY 06/27/22 [History Last Taken 06/27/22] Allergy/AdvReac Type Severity Reaction Status Date / Time No Known Allergies Allergy Verified 06/27/22 12:20 Social History household members: none housing: house Smoking Status: Never smoker ROS ROS ED ROS Narrative A complete review of systems was performed and is negative except as documented in the history of present illness. Some specific details below. Constitutional: No recent fevers or chills. EYE: No discharge, visual complaints, or pain. ENT: No difficulty swallowing. No swelling. No pain. No reflux symptoms. CV: See history of present illness. Respiratory: No cough, pain with a deep breath or dyspnea. GI: No abdominal pain. No nausea at any time and no vomiting diarrhea. No blood in stool. : No frequency dysuria or hematuria. Musculoskeletal: No recent trauma. No pains. No swelling. Skin: No rash. Nondiaphoretic now or at any time. Neuro: No weakness or numbness. Endocrine: No polyuria or polydipsia. EXAM Physical Exam Narrative Exam Narrative: CONSTITUTIONAL: Patient is nontoxic in appearance. Work of breathing looks normal. She is pleasant and smiling and looks very comfortable HEENT: No notable trauma. Mucous membranes moist. No sinus tenderness. No indication of pain with swallowing. EYES: No conjunctival injection. No proptosis. NECK:No JVD. No stridor. CARDIOVASCULAR: Regular rate. Regular rhythm. No notable murmur. No JVD. Peripheral pulses are normal x4. Tones are not muffled. RESPIRATORY: No respiratory distress. Breathing is unlabored. No wheezes. No rhonchi. No rales. She can take a deep breath with no pain at all. She does have some mild chest wall tenderness in the area of discomfort but does not fully reproduce her symptoms. There are no skin changes. GASTROINTESTINAL: Not distended. Bowel sounds are normal. No tenderness. No guarding. No rebound. No palpable mass. No bruit is heard. GENITOURINARY: No tenderness over the bladder. No CVA tenderness. MUSCULOSKELETAL: Atraumatic. No peripheral edema. No cord. No tenderness along the deep venous system. No asymmetry. No distended veins. NEUROLOGICAL: Patient is alert and appropriate. No focal deficit noted. SKIN: No noted rashes. No diaphoresis. PSYCHIATRIC: Patient is calm. Mood is appropriate. Const Vital Signs: 06/07/23 12:13 06/07/23 12:32 06/07/23 14:31 Temperature 97.9 F Temperature Source Temporal Pulse Rate 68 68 Respiratory Rate 16 Blood Pressure 163/89 H 149/88 H Blood Pressure Mean 113 108 Pulse Ox 95 97 Oxygen Delivery Method Room Air Room Air Room Air Heart Score History: Slightly/Non-Suspicious ECG: Normal Age: >/= 65 years Risk Factors: 1 or 2 Risk Factors Troponin: </= Normal Limit Score: 3 MDM MDM MDM Narrative Medical decision making narrative: My independent interpretation the patient's single view AP chest x-ray shows no acute process and final reading is similar. Patient CBC shows no acute abnormality including white count hemoglobin hematocrit and platelets. Patient's electrolytes show minimally low sodium which is not the source of her symptoms most likely and no other acute abnormality. Patient's first troponin is negative at 5. Patient's second troponin is negative at 4. Patient has a heart score of 3. She has 2 negative troponins. She has over 12 hours of symptoms. I think she is safe and appropriate for discharge. She has no risk factor for DVT or PE. She has no tachycardia tachypnea or hypoxia. We discussed reasons to return and appropriate follow-up. Lab Data Labs: Laboratory Results - last 24 hr 06/07/23 06/07/23 12:16 14:25 WBC 7.6 RBC 4.45 Hgb 13.6 Hct 39.8 MCV 89.4 MCH 30.6 MCHC 34.2 RDW Std Deviation 47.8 H RDW Coeff of Ravinder 14.6 Plt Count 337 MPV 10.2 Immature Gran % (Auto) 0.300 Neut % (Auto) 41.2 L Lymph % (Auto) 44.6 H [place] % (Auto) 11.1 H Eos % (Auto) 2.1 Baso % (Auto) 0.7 Absolute Neuts (auto) 3.1 Absolute Lymphs (auto) 3.37 Nucleated RBC % 0 Sodium 134 L Potassium 3.9 Chloride 102 Carbon Dioxide 25.0 Anion Gap 7 BUN 10 Creatinine 0.71 Estim Creat Clear Calc 35.99 Est GFR (MDRD) Af Amer 103 Est GFR (MDRD) Non-Af 86 BUN/Creatinine Ratio 14.0 Glucose 86 Calcium 9.1 Troponin I High Sens 5 4 Radiography Diagnostic Testing: Clinical Impression(s) from Imaging Studies Chest X-Ray 06/07/23 12:40 IMPRESSION: No radiographic evidence of acute cardiopulmonary disease. Electronically Signed: Elizabeth Ordaz MD at 13:17 EDT , EKG Initial EKG: Comments: My independent interpretation the patient's EKG done for chest pain shows normal sinus rhythm with first-degree AV block. But there is no ectopy. Rate is normal at 73. HI interval is long but QRS duration and QTc are normal. Discharge Plan Triage Chief Complaint: Chest Pain ED Provider: Sesar Retana Dx/Rx/DC Orders Clinical Impression: History of hypertension, Chest pain Instructions: ED Chest Pain, Uncertain Cause Prescriptions: No Action losartan 50 mg tablet 50 mg PO DAILY Patient Comments: TAKE 1 TABLET BY MOUTH EVERY DAY diltiazem HCl 240 mg capsule,extended release 24hr 240 mg PO DAILY Patient Comments: TAKE 1 CAPSULE BY MOUTH EVERY DAY Primary Care Provider: Devyn Amador Referrals: Devyn Amador DO [Primary Care Provider] - 3-5 Days Disposition Disposition: Home, Self Care
[2023-06-07 12:54] LABS: Absolute Lymphocyte Count 3.37 X10^3/uL (0.83-4.51); Absolute Neutrophil Count 3.1 X10^3/uL (2.0-7.7); Basophil# 0.05 X10^3/uL; Basophil% 0.7 % (0-1); Eosinophil# 0.16 X10^3/uL; Eosinophils% 2.1 % (0-5); Hematocrit 39.8 % (37-47); Hemoglobin 13.6 g/dL (12.0-15.0); Lymphocyte # 3.37 X10^3/ul (0.83-4.51); Lymphocyte % 44.6 % (19-41); Mean Corp Hgb Conc 34.2 g/dL (32-36); Mean Corpuscular Hgb 30.6 pg (27.0-32.0); Mean Corpuscular Volume 89.4 fL (81-99); Mean Platelet Vol. 10.2 fl (6.2-12.0); Monocyte# 0.84 X10^3/uL; Monocyte% 11.1 % (0-10); NRBC Flagged by Analyzer 0 % (0-5); Neutrophil # 3.11 X10^3/uL (2.7-7.7); Neutrophil % 41.2 % (47-70); Platelet Count 337 K/mm3 (150-450); RBC Distribution Width CV 14.6 % (11.6-14.6); RBC Distribution Width SD 47.8 fl (35.1-43.9); Red Blood Count 4.45 M/mm3 (4.2-5.4); White Blood Count 7.6 K/mm3 (4.4-11.0)
[2023-06-07 13:21] LABS: Anion Gap 7 (5-15); BUN 10 mg/dL (7-18); Calcium,Total 9.1 mg/dL (8.5-10.1); Chloride 102 mmol/L (98-107); Creatinine, Serum 0.71 mg/dL (0.55-1.02); EST Glomerular Filtration Rate 86 mL/min (>60); Est Glom Filt Rate - Afr Amer 103 mL/min (>60); Estimated Creatinine Clearance 35.99 ml/min; Glucose 86 mg/dL (74-106); Potassium 3.9 mmol/L (3.5-5.1); Sodium Level 134 mmol/L (136-145); Troponin-I HS (w/2H Reflex) 5 pg/mL (3.0-54.0)
[2023-06-07 14:31] VITALS: BP 149/88; PULSE 68; O2SAT 97
[2023-06-07 14:44] LABS: Reflex Troponin-HS? (from REC) Y
[2023-06-07 15:07] LABS: Troponin-I HS 4 pg/mL (3.0-54.0)
[2023-06-07 15:26] VITALS: PULSE 64; RESP 18; O2SAT 94
== END 2023-06-07 15:31 | disposition home or self-care (01) ==
PROVIDERS: Emergency Provider Emergency Medicine; PCP Family Medicine; Visit Provider Emergency Medicine
DX: R07.9 Chest pain, unspecified (principal); I10 Essential (primary) hypertension; Z79.899 Other long term (current) drug therapy
CPT/HCPCS: 71045; 80048; 84484; 85025; 93005; 99284; A4216